=== PATIENT | male | born 1955 | race Caucasian/White ===

== ENCOUNTER 2024-10-24 13:52 | Observation (INO) ==
[2024-10-24] MEDS: TORADOL 30 MG VIAL IVP ONE (14:07)
--- NOTE | 2024-10-24 16:23 | DR.CP ---
HPI Time Seen Time Seen by Provider: 10/24/24 14:23 HPI Comment HPI Comment: left lower chest pain. According to pt he had shingles over the left side of lower ribs .Now has developed pain anterior left lower chest at the site of patients rash .Moderate burning pain that seems to penetrate all the way to the back .He has also noted increase in sensitivity of the skin ta the site of his rash .Pt also indicates that his pain is more localized to front of the chest than anywhere else.He had used oxycodone in the past which did relieve his pain but his current pain is not getting better. He called the ambulance, and he was brought to Er for evaluation .pt has had cxr and ct of chest which has been neg .Pt feels frustrated Has mild shortness of breath but no orthopnea PND or swelling around his ankles Does have copd Reviewed Nurses Notes Review: Yes Source History Provided: Patient Mode of Arrival Mode of Arrival: EMS Timing Came on: Gradually PMH PMH Past Medical History: Arthritis, Asthma, COPD, Dyslipidemia, GERD and Hypertension Past Surgical History: Yes Surgical History: Ortho Surgery and Tonsillectomy Family History Family Medical History: Cancer, Coronary Artery Disease and Hypertension Social History Do you use any recreational Drugs:: No ROS Review of Systems Constitutional: No Symptoms Reported Eyes: No Symptoms Reported ENTM: No Symptoms Reported Respiratoy: Short of Breath Cardiovascular: Chest Pain Gastrointestinal/Abdominal: No Symptoms Reported Genitourinary: No Symptoms Reported Neurological: No Symptoms Reported Musculoskeletal: Back Pain and Joint Pain Integumentary: Other (sensitive ) Hematologic/Lymphatic: No Symptoms Reported PE Vitals Vitals: Vital Signs Temperature 98.1 F Pulse Rate 77 Pulse Rate 76 Pulse Rate 80 Pulse Rate 82 Pulse Rate 81 Pulse Rate 90 Pulse Rate 78 Pulse Rate 90 Pulse Rate 71 Pulse Rate 75 Pulse Rate 73 Pulse Rate 77 Pulse Rate 85 Pulse Rate 103 Pulse Rate 84 Pulse Rate 94 Pulse Rate 80 Pulse Rate 85 Pulse Rate 87 Respiratory Rate 34 Respiratory Rate 17 Respiratory Rate 24 Respiratory Rate 32 Respiratory Rate 17 Respiratory Rate 49 Respiratory Rate 20 Respiratory Rate 21 Respiratory Rate 13 Respiratory Rate 12 Respiratory Rate 13 Respiratory Rate 14 Respiratory Rate 43 Respiratory Rate 41 Respiratory Rate 17 Respiratory Rate 31 Respiratory Rate 22 Respiratory Rate 20 Respiratory Rate 19 Respiratory Rate 20 Blood Pressure 109/60 Blood Pressure 117/72 Blood Pressure 117/72 Blood Pressure 100/61 Blood Pressure 99/55 Blood Pressure 99/55 Blood Pressure 99/55 Blood Pressure 119/82 Blood Pressure 119/77 Blood Pressure 120/82 Blood Pressure 120/82 Blood Pressure 119/77 Blood Pressure 119/77 O2 Sat by Pulse Oximetry 97 O2 Sat by Pulse Oximetry 96 O2 Sat by Pulse Oximetry 96 O2 Sat by Pulse Oximetry 95 O2 Sat by Pulse Oximetry 93 O2 Sat by Pulse Oximetry 95 O2 Sat by Pulse Oximetry 94 O2 Sat by Pulse Oximetry 93 O2 Sat by Pulse Oximetry 94 General Limitations: No Limitations General Appearance: Alert, Anxious and In Distress Head Head Exam: Normal Inspection, Atraumatic and Normocephalic Eyes Eye exam: Normal Appearance, PERRL and EOMI ENT ENT Exam: Mucous Membranes Moist Chest Chest Inspection: Tenderness and Other (increase sensitivity over 7,8 rib laterally and anteriorly ) Respiratory Respiratory Exam: Normal Lung Sounds Bilat and Prolonged Expiratory Phase Respiratory Exam: Bilateral: Crackles Cardiovascular Cardiovascular Exam: +S1 and +S2 Abdominal Exam Abdominal Exam: Normal Inspection, Normal Bowel Sounds and Soft Skin Skin Exam: Rash (healing from the recent shingles left chest ) MDM Additional Information Additional Information Obtained From: Old Records Differential Diagnosis Differential Diagnosis: Chest Wall Pain (post harpatic neuralgia ) and Pulmonary Embolus COURSE Treatment Treatment: d dimer ,cbc ,cmp ROR Labs Reviewed 10/24/24 15:08 10/24/24 15:08 Laboratory: WBC 6.8 X10^3/uL (3.6-10.0) 10/24/24 15:08 RBC 3.60 X10^6/uL (4.7-6.0) L 10/24/24 15:08 Hgb 11.2 g/dL (13.5-18.0) L 10/24/24 15:08 Hct 32.1 % (42.0-54.0) L 10/24/24 15:08 MCV 89.1 fL (80.0-100.0) 10/24/24 15:08 MCH 31.2 pg (27.0-34.0) 10/24/24 15:08 MCHC 35.0 g/dL (33.0-35.0) 10/24/24 15:08 RDW 13.3 % (11.6-16.5) 10/24/24 15:08 Plt Count 228 X10^3/uL (150.0-450.0) 10/24/24 15:08 MPV 9.1 fL (7.4-11.0) 10/24/24 15:08 Neut % (Auto) 69.1 % (42.0-75.0) 10/24/24 15:08 Lymph % (Auto) 17.8 % (21.0-51.0) L 10/24/24 15:08 [place] % (Auto) 8.5 % (0.0-13.0) 10/24/24 15:08 Eos % (Auto) 3.3 % (0.9-2.9) H 10/24/24 15:08 Baso % (Auto) 1.3 % (0.2-1.0) H 10/24/24 15:08 Neut # (Auto) 4.7 x10^3/uL (2.2-4.8) 10/24/24 15:08 Lymph # (Auto) 1.2 X10^3/uL (1.3-2.9) L 10/24/24 15:08 [place] # (Auto) 0.6 x10^3/uL (0.3-0.8) 10/24/24 15:08 Eos # (Auto) 0.2 x10^3/uL (0.0-0.2) 10/24/24 15:08 Baso # (Auto) 0.1 X10^3/uL (0.0-0.1) 10/24/24 15:08 Absolute Nucleated RBC 0.1 /100WBC 10/24/24 15:08 D-Dimer 1.81 ug/ml (0.0-0.57) H 10/24/24 15:08 Sodium 139 mmol/L (136-145) 10/24/24 15:08 Corrected Sodium TNP 10/24/24 15:08 Potassium 3.4 mmol/L (3.5-5.1) L 10/24/24 15:08 Chloride 101 mmol/L (98-107) 10/24/24 15:08 Carbon Dioxide 31.2 mmol/L (21-32) 10/24/24 15:08 BUN 22 mg/dL (7-18) H 10/24/24 15:08 Creatinine 1.19 mg/dL (0.70-1.30) 10/24/24 15:08 Est GFR (MDRD) Af Amer > 60 (>60) 10/24/24 15:08 Est GFR (MDRD) Non-Af > 60 (>60) 10/24/24 15:08 Glucose 92 mg/dL (65-99) 10/24/24 15:08 Calcium 9.0 mg/dL (8.5-10.1) 10/24/24 15:08 Corrected Calcium TNP 10/24/24 15:08 Total Bilirubin 0.20 mg/dL (0.2-1.0) 10/24/24 15:08 AST 19 Units/L (15-37) 10/24/24 15:08 ALT 19 Units/L (12-78) 10/24/24 15:08 Alkaline Phosphatase 64 Units/L (46-116) 10/24/24 15:08 Total Protein 7.0 g/dL (6.4-8.2) 10/24/24 15:08 Albumin 3.5 g/dL (3.4-5.0) 10/24/24 15:08 Globulin 3.5 g/dL (2.5-4.5) 10/24/24 15:08 Albumin/Globulin Ratio 1.0 Ratio (1.1-2.1) L 10/24/24 15:08 Opioid Opioid Risk Tool Age (Kevin box if 16-45): No History of Preadolescent Sexual Abuse: No Total: 0 Total Score Risk Category: Low Risk Copyright: Efren DENNIS predicting aberrant behaviors Discharge Plan Diagnosis Discharge Problem: Bilateral pneumonia, Post herpetic neuralgia, History of hepatitis C, Chronic pain Discharge Plan Patient Disposition: ADMITTED INPATIENT Condition: Stable Prescriptions: Continued sofosbuvir-velpatasvir [Epclusa] 400-100 mg tablet 1 tab PO QDAY albuterol sulfate 0.63 mg/3 mL solution for nebulization 0.63 mg continuous nebulization Q6H PRN (Reason: shortness of breath or wheezing) 90 Days Qty: 1100 1RF Rx Instructions: 3 ML VIA NEBULIZER Q 6 HOURS NEEDED FOR SHORTNESS OF BREATH OR WHEEZING amlodipine 5 mg tablet 5 mg PO QPM 90 Days Qty: 90 1RF Rx Instructions: TAKE 1 TABLET BY MOUTH EVERY EVENING FOR BLOOD PRESSURE atorvastatin 40 mg tablet 40 mg PO QHS 90 Days Qty: 90 1RF Rx Instructions: TAKE 1 TABLET BY MOUTH AT BEDTIME FOR CHOLESTEROL gabapentin 300 mg capsule 300 mg PO QDAY Rx Instructions: TAKE 1 CAPSULE ONCE A DAY hydrochlorothiazide 12.5 mg tablet 12.5 mg PO QAM 90 Days Qty: 90 1RF Rx Instructions: TAKE 1 TABLET BY MOUTH EVERY MORNING FOR BLOOD PRESSURE losartan 50 mg tablet 50 mg PO QAM 90 Days Qty: 90 1RF Rx Instructions: TAKE 1 TABLET BY MOUTH ONCE A DAY IN THE MORNING FOR BLOOD PRESSURE oxycodone-acetaminophen 10-325 mg tablet 1 tab PO Q8H PRN (Reason: pain) Trelegy Ellipta 100-62.5-25 mcg blister with device 1 ea inhalation QDAY Discontinued Trelegy Ellipta 100-62.5-25 mcg blister with device 1 inh inhalation ONCE 30 Days Qty: 60 5RF Rx Instructions: 1 Inhalation Q Daily for Breathing albuterol sulfate 90 mcg/actuation HFA aerosol inhaler 2 puff INHALATION QID 90 Days Qty: 51 1RF Rx Instructions: 2 PUFFS VIA INHALATION Q 6 HRS NEEDED FOR BREATHING fenofibrate nanocrystallized 48 mg tablet 48 mg PO QDAY 90 Days Qty: 90 1RF Rx Instructions: TAKE 1 TABLET BY MOUTH ONCE A DAY FOR TRIGLYCERIDES Linzess 290 mcg capsule 290 mcg PO QAM Rx Instructions: TAKE 1 CAPSULE BY MOUTH ONCE A DAY FOR CONSTIPATION benzonatate 100 mg capsule 100 mg PO TID PRNQty: 14 0RF methylprednisolone [Medrol ([place])] 4 mg tablets,dose pack See Rx Instructions .ROUTE .COMPLEX Qty: 21 0RF Rx Instructions: for 6 days Health Concerns: Post Hospitalization: new medications and changes needed to prevent readmission or further decline. Pt educated and given instructions on all concerns. Plan of Treatment: Continue with present treatment and follow up plan. Pt is to keep follow up appointment as instructed and take medications as ordered. Orders to Discharge Patient Discharge Orders: Transfer (Routine); Ordered 10/24/24 Ordered By: Anatoliy Fonseca Follow ups/Referrals Follow ups/Referrals: Sarah Johnson [Primary Care Provider, MEDICAL] - 3 days Instructions Stand Alone Forms: Find Help Web Site, Post Hospital Follow Up Care Print Language: SETSWA[place]
[2024-10-24 16:39] LABS: CREATININE 1.19 mg/dL (0.70-1.30); eGFR NON BLACK RACES > 60 (>60)
--- NOTE | 2024-10-24 17:50 | CT ---
EXAMINATION: CTA, CHEST HISTORY: chest pain; COMPARISON: CT thorax 06/26/2024 TECHNIQUE: Contiguous axial CT images of the thorax following intravenous contrast. Images reviewed in the axial imaging plane with post processing thick slab MIP/3D volume images at a workstation.The above CT scan was done with automated exposure control and the mA and kV was adjusted to obtain quality images according to patient size. FINDINGS: Moderate elevation of the right hemidiaphragm. Pulmonary consolidation in the right lower lobe measuring 5.7 by 7 x 3 cm. Small area of pulmonary consolidation in the right middle lobe adjacent to the right hemidiaphragm measuring 3.4 by 5.4 by 1.4 cm. There is occlusion of the right lower lobe bronchus. Normal enhancement of the heart. Coronary artery calcifications. The main pulmonary outflow trunk measures 2.5 cm diameter which is within normal range. No evidence of acute thrombus within the pulmonary arteries. No evidence of thoracic aortic aneurysm or dissection. No pericardial effusion. No mediastinal or hilar adenopathy. Moderate to severe thoracic spondylosis. IMPRESSION: Large area of pulmonary consolidation right lower lobe of the chest with smaller area of pulmonary consolidation of the left lower lobe. Moderate elevation of the right hemidiaphragm of the chest. Occlusion of the right lower lobe pulmonary bronchus. Coronary artery calcifications. THIS IS AN ELECTRONICALLY VERIFIED FINAL REPORT 10/24/2024 5:47 PM - Electronically signed by Kim Bautista MD
[2024-10-24 17:57] LABS: MEAN PLATELET VOLUME 9.1 fL (7.4-11.0); RED CELL DISTRIBUTION WIDTH 13.3 % (11.6-16.5)
[2024-10-24] MEDS ORDERED: PATIENT'S HOME MEDICATION (Fluticasone-Umeclidin-Vilanter [Trelegy Ellipta] 100-62.5-25 mc IN SCH (20:12)
[2024-10-24] MEDS ORDERED: ACCUNEB 1.25 MG NEBULE NEB PRN (20:24)
[2024-10-24 20:47] VITALS: BMI 25.7
[2024-10-24] MEDS: PULMICORT NEB TX 0.5 MG NEB SCH (20:56)
[2024-10-24] MEDS: PROVENTIL NEB TX 0.083% 2.5MG/ 3ML NEB SCH (20:56)
[2024-10-24] MEDS: MUCOMYST 20% 200 MG/ML NEB SCH (21:06)
[2024-10-24] MEDS: VIBRAMYCIN 100 MG in D5W 250 ML IV 250 ML IV SCH (21:15)
[2024-10-24] MEDS: NORVASC TAB 5 MG PO SCH (21:17)
[2024-10-24] MEDS: LIPITOR TAB 40 MG PO SCH (21:17)
[2024-10-24] MEDS: PERCOCET TAB 5/325 MG PO PRN (21:46)
[2024-10-24] MEDS: NEURONTIN CAP 300 MG PO SCH (21:52)
[2024-10-24] MEDS ORDERED: CONSULT PHARMACY - POTASSIUM & MAGNESIUM XX SCH (23:00)
[2024-10-24] MEDS: K-DUR TAB 20 MEQ PO ONE (23:16)
[2024-10-25 05:44] LABS: MEAN PLATELET VOLUME 7.7 fL (7.4-11.0); RED CELL DISTRIBUTION WIDTH 13.2 % (11.6-16.5)
[2024-10-25 05:56] LABS: COR NA(FOR HYPERGLY) 141 mmol/L (136-145); CREATININE 1.19 mg/dL (0.70-1.30); eGFR NON BLACK RACES > 60 (>60)
[2024-10-25] MEDS: TORADOL 30 MG VIAL ONE (07:08)
[2024-10-25] MEDS: OMNIPAQUE 350 mg/mL 100 mL BTL 100 ML ONE (07:10)
[2024-10-25] MEDS: PERCOCET TAB 5/325 MG ONE (07:10)
[2024-10-25] MEDS: MUCOMYST (RESPIRATORY USE ONLY) ONE (07:10)
[2024-10-25] MEDS: K-DUR TAB 20 MEQ PO ONE (07:11)
[2024-10-25] MEDS: HYDROCHLOROTHIAZIDE 12.5 MG CAP PO SCH (10:02)
[2024-10-25] MEDS: COZAAR PO SCH (10:02)
[2024-10-25] MEDS: MILK OF MAGNESIA PO SCH (10:03)
[2024-10-25] MEDS: SOFOSBUVIR VELPATASVIR PO SCH (10:03)
[2024-10-25] MEDS: TORADOL 15 MG VIAL IVP PRN (15:22)
[2024-10-25] MEDS: DECADRON INJ IVP SCH (15:23)
[2024-10-25] MEDS: NEURONTIN CAP 300 MG PO SCH (15:23)
--- NOTE | 2024-10-25 16:05 | DR.H&P ---
H&P History & Physical for Day of: H&P Date: 10/25/24 Chief Complaint Chief Complaint: chest pain History of Present Illness History of Present Illness: From ER note: "left lower chest pain. According to pt he had shingles over the left side of lower ribs .Now has developed pain anterior left lower chest at the site of patients rash .Moderate burning pain that seems to penetrate all the way to the back .He has also noted increase in sensitivity of the skin ta the site of his rash .Pt also indicates that his pain is more localized to front of the chest than anywhere else.He had used oxycodone in the past which did relieve his pain but his current pain is not getting better. He called the ambulance, and he was brought to Er for evaluation .pt has had cxr and ct of chest which has been neg .Pt feels frustrated Has mild shortness of breath but no orthopnea PND or swelling around his ankles" Patient reports that he has the same chest pain, chest pressure, and dyspnea. Still with a productive cough. Had stopped his Trelegy approximately a month ago due to reading all the side effects and feeling like he was having multiple. Vitals and labs overall stable today. Nurses deny any overnight events. ROS: 12 point ROS positive for dyspnea, left-sided chest pain, rash of the left chest wall, back pain, and productive cough. Otherwise negative. PE: Well-developed, well-nourished male in no acute distress. Hearing intact conversation, head NCAT, EOMI. Neck full range of motion with trachea midline. Heart regular rate and rhythm. Lungs clear except for at the bases with a lot of referred upper airway noises. Belly is soft, nontender, nondistended with bowel sounds present. Mood and affect are appropriate. Able to move all extremities equally well with no edema. Skin turgor and color are appropriate. Has a couple of dry, erythematous lesions of the left lateral chest wall overlying ribs 9-11. Past Medical History Past Medical History: Arthritis, Asthma, COPD, Dyslipidemia, GERD and Hypertension Past Surgical History Surgical History: Joint Replacement, Ortho Surgery and Tonsillectomy Family History Family Medical History: Cancer, Coronary Artery Disease and Hypertension Social History Does patient currently use any type of tobacco product: No Have you used tobacco products in the last 12 months: No Type of Tobacco Use: Cigarettes How many years tobacco product used: 60 Does any household member use tobacco: No Alcohol Use: None Drug Use: None Medications Home Medications: Home Medications Medication Instructions Recorded Confirmed Type amlodipine 5 mg tablet 5 mg PO QDAY 10/24/24 History atorvastatin 40 mg tablet 40 mg PO QPM 10/24/24 History fenofibrate nanocrystallized 48 mg 48 mg PO QDAY 10/2410/24/24 History tablet fluticasone fur. 100 mcg-umeclid 1 ea inhalation QDAY 10/24/24 10/24/24 History 62.5 mcg-vilant 25 mcg inhalat.powder (Trelegy Ellipta) hydrochlorothiazide 12.5 mg capsule 12.5 mg PO QDAY 10/24/24 History linaclotide 290 mcg capsule 290 mcg PO QAM 10/24/24 History (Linzess) losartan 50 mg tablet 50 mg PO QDAY 10/24/2410/24 History omeprazole 40 mg capsule,delayed 40 mg PO QDAY 5 10/24/24 History release oxycodone-acetaminophen 10 mg-325 1 tab PO TID PRN 10/24/24 History mg tablet sofosbuvir 400 mg-velpatasvir 100 1 tab PO QDAY 10/24/24 History mg tablet (Epclusa) tamsulosin 0.4 mg capsule 0.4 mg PO QDAY 10/24/2409/27 History Allergies Allergies Allergy/AdvReac Type Severity Reaction Status Date / Time magnesium AdvReac Verified 10/24/24 19:27 Labs 10/25/24 05:33 10/25/24 05:33 Labs: Laboratory WBC 5.4 X10^3/uL (3.6-10.0) 10/25/24 05:33 RBC 3.47 X10^6/uL (4.7-6.0) L 10/25/24 05:33 Hgb 10.8 g/dL (13.5-18.0) L 10/25/24 05:33 Hct 31.2 % (42.0-54.0) L 10/25/24 05:33 MCV 89.9 fL (80.0-100.0) 10/25/24 05:33 MCH 31.1 pg (27.0-34.0) 10/25/24 05:33 MCHC 34.6 g/dL (33.0-35.0) 10/25/24 05:33 RDW 13.2 % (11.6-16.5) 10/25/24 05:33 Plt Count 203 X10^3/uL (150.0-450.0) 10/25/24 05:33 MPV 7.7 fL (7.4-11.0) 10/25/24 05:33 Neut % (Auto) 64.2 % (42.0-75.0) 10/25/24 05:33 Lymph % (Auto) 21.2 % (21.0-51.0) 10/25/24 05:33 [place] % (Auto) 10.3 % (0.0-13.0) 10/25/24 05:33 Eos % (Auto) 3.6 % (0.9-2.9) H 10/25/24 05:33 Baso % (Auto) 0.7 % (0.2-1.0) 10/25/24 05:33 Neut # (Auto) 3.5 x10^3/uL (2.2-4.8) 10/25/24 05:33 Lymph # (Auto) 1.2 X10^3/uL (1.3-2.9) L 10/25/24 05:33 [place] # (Auto) 0.6 x10^3/uL (0.3-0.8) 10/25/24 05:33 Eos # (Auto) 0.2 x10^3/uL (0.0-0.2) 10/25/24 05:33 Baso # (Auto) 0.0 X10^3/uL (0.0-0.1) 10/25/24 05:33 Absolute Nucleated RBC 0.1 /100WBC 10/25/24 05:33 D-Dimer 1.81 ug/ml (0.0-0.57) H 10/24/24 15:08 Sodium 141 mmol/L (136-145) 10/25/24 05:33 Corrected Sodium 141 mmol/L (136-145) 10/25/24 05:33 Potassium 3.4 mmol/L (3.5-5.1) L 10/25/24 05:33 Chloride 103 mmol/L (98-107) 10/25/24 05:33 Carbon Dioxide 29.9 mmol/L (21-32) 10/25/24 05:33 BUN 23 mg/dL (7-18) H 10/25/24 05:33 Creatinine 1.19 mg/dL (0.70-1.30) 10/25/24 05:33 Est GFR (MDRD) Af Amer > 60 (>60) 10/25/24 05:33 Est GFR (MDRD) Non-Af > 60 (>60) 10/25/24 05:33 Glucose 116 mg/dL (65-99) H 10/25/24 05:33 Calcium 9.1 mg/dL (8.5-10.1) 10/25/24 05:33 Corrected Calcium TNP 10/25/24 05:33 Magnesium 1.7 mg/dL (2.0-2.9) L 10/25/24 05:33 Total Bilirubin 0.20 mg/dL (0.2-1.0) 10/25/24 05:33 AST 22 Units/L (15-37) 10/25/24 05:33 ALT 17 Units/L (12-78) 10/25/24 05:33 Alkaline Phosphatase 58 Units/L (46-116) 10/25/24 05:33 Total Protein 6.8 g/dL (6.4-8.2) 10/25/24 05:33 Albumin 3.5 g/dL (3.4-5.0) 10/25/24 05:33 Globulin 3.3 g/dL (2.5-4.5) 10/25/24 05:33 Albumin/Globulin Ratio 1.1 Ratio (1.1-2.1) 10/25/24 05:33 Physical Exam Vital Signs: Vital Signs Temperature 98.1 F Temperature 98.0 F Pulse Rate [Right Brachial] 80 Pulse Rate [Right Brachial] 67 Respiratory Rate 19 Respiratory Rate 19 Respiratory Rate 19 Respiratory Rate 19 Blood Pressure [Left Arm] 130/69 Blood Pressure [Left Arm] 101/59 O2 Sat by Pulse Oximetry 96 O2 Sat by Pulse Oximetry 95 O2 Sat by Pulse Oximetry 94 Assessment/Plan (1) Post herpetic neuralgia: Narrative Support Text: Increase gabapentin to 3 times daily. Will add on Toradol as needed. Status: Acute (2) Bilateral pneumonia: Qualifiers: Pneumonia type: due to unspecified organism Lung location: lower lobe of lung Qualified Code(s): J18.9 - Pneumonia, unspecified organism Narrative Support Text: Continue Doxy, add Decadron, continue nebulizer. O2 as needed. Status: Acute (3) COPD exacerbation: Narrative Support Text: See above. Status: Acute (4) Normocytic anemia: Narrative Support Text: Monitor. Status: Acute (5) Essential hypertension: Narrative Support Text: Monitor. Status: Acute
[2024-10-25] MEDS: NS 250 ML IV 250 ML IV PRN (21:12)
[2024-10-25] MEDS: COLACE CAP 100 MG PO SCH (21:13)
[2024-10-26] MEDS: NS 250 ML IV 250 ML IV ONE (02:33)
[2024-10-26 05:44] LABS: MEAN PLATELET VOLUME 8.8 fL (7.4-11.0); RED CELL DISTRIBUTION WIDTH 13.1 % (11.6-16.5)
[2024-10-26 06:02] LABS: COR NA(FOR HYPERGLY) 142 mmol/L (136-145); CREATININE 1.10 mg/dL (0.70-1.30); eGFR NON BLACK RACES > 60 (>60)
[2024-10-26 06:16] LABS: PLATELET MORPHOLOGY COMMENT NORMAL (NORMAL)
[2024-10-26] MEDS ORDERED: CONSULT PHARMACY - POTASSIUM & MAGNESIUM XX SCH (07:00)
[2024-10-26] MEDS: MAG-OX TAB PO SCH (09:13)
[2024-10-26] MEDS: K-DUR TAB 20 MEQ PO SCH (10:05)
[2024-10-26 12:21] VITALS: BP 115/59; PULSE 103; RESP 16; TEMP 97.8; O2SAT 96
--- NOTE | 2024-10-26 18:21 | PCM.DCPLAN ---
DISCHARGE SUMMARY Admission Date Date of Admission: 10/24/24 Discharge Date Discharge Date: 10/26/24 Admission Diagnoses (1) Post herpetic neuralgia: Status: Acute (2) Bilateral pneumonia: Status: Acute (3) COPD exacerbation: Status: Acute (4) Normocytic anemia: Status: Acute (5) Essential hypertension: Status: Acute Discharge Diagnoses Discharge Diagnosis: same Discharge Medications Discharge Medications: Home Medication List amlodipine 5 mg tablet 5 mg PO QDAY 10/24/24 [History] atorvastatin 40 mg tablet 40 mg PO QPM 10/24/24 [History] fenofibrate nanocrystallized 48 mg tablet 48 mg PO QDAY 10/24/24 [History] fluticasone fur. 100 mcg-umeclid 62.5 mcg-vilant 25 mcg inhalat.powder (Trelegy Ellipta) 1 ea inhalation QDAY 10/24/24 [History] hydrochlorothiazide 12.5 mg capsule 12.5 mg PO QDAY 10/24/24 [History] linaclotide 290 mcg capsule (Linzess) 290 mcg PO QAM 10/24/24 [History] losartan 50 mg tablet 50 mg PO QDAY 10/24/24 [History] omeprazole 40 mg capsule,delayed release 40 mg PO QDAY 10/24/24 [History] oxycodone-acetaminophen 10 mg-325 mg tablet 1 tab PO TID PRN 10/24/24 [History] sofosbuvir 400 mg-velpatasvir 100 mg tablet (Epclusa) 1 tab PO QDAY 10/24/24 [History] tamsulosin 0.4 mg capsule 0.4 mg PO QDAY 10/24/24 [History] Prescriptions: Hospital Course Vital Signs: Vital Signs Temperature 98.4 F Temperature 98.4 F Temperature 98.4 F Pulse Rate [Left Brachial] 116 Pulse Rate [Right Brachial] 112 Pulse Rate [Right Brachial] 112 Pulse Rate 85 Respiratory Rate 20 Respiratory Rate 18 Respiratory Rate 18 Respiratory Rate 18 Respiratory Rate 18 Blood Pressure [Left Arm] 119/60 Blood Pressure [Left Arm] 113/59 Blood Pressure [Left Arm] 113/59 O2 Sat by Pulse Oximetry 95 O2 Sat by Pulse Oximetry 93 O2 Sat by Pulse Oximetry 97 O2 Sat by Pulse Oximetry 97 Latest Lab Results: Laboratory Last Values WBC 8.2 X10^3/uL (3.6-10.0) 10/26/24 05:07 RBC 3.48 X10^6/uL (4.7-6.0) L 10/26/24 05:07 Hgb 10.9 g/dL (13.5-18.0) L 10/26/24 05:07 Hct 31.2 % (42.0-54.0) L 10/26/24 05:07 MCV 89.5 fL (80.0-100.0) 10/26/24 05:07 MCH 31.3 pg (27.0-34.0) 10/26/24 05:07 MCHC 34.9 g/dL (33.0-35.0) 10/26/24 05:07 RDW 13.1 % (11.6-16.5) 10/26/24 05:07 Plt Count 206 X10^3/uL (150.0-450.0) 10/26/24 05:07 Plt Count Comment Adequate (ADEQUATE) 10/26/24 05:07 MPV 8.8 fL (7.4-11.0) 10/26/24 05:07 Neut % (Auto) 94.1 % (42.0-75.0) H 10/26/24 05:07 Lymph % (Auto) 3.6 % (21.0-51.0) L 10/26/24 05:07 [place] % (Auto) 1.9 % (0.0-13.0) 10/26/24 05:07 Eos % (Auto) 0.2 % (0.9-2.9) L 10/26/24 05:07 Baso % (Auto) 0.2 % (0.2-1.0) 10/26/24 05:07 Neut # (Auto) 7.7 x10^3/uL (2.2-4.8) H 10/26/24 05:07 Lymph # (Auto) 0.3 X10^3/uL (1.3-2.9) L 10/26/24 05:07 [place] # (Auto) 0.2 x10^3/uL (0.3-0.8) L 10/26/24 05:07 Eos # (Auto) 0.0 x10^3/uL (0.0-0.2) 10/26/24 05:07 Baso # (Auto) 0.0 X10^3/uL (0.0-0.1) 10/26/24 05:07 Absolute Nucleated RBC 0.0 /100WBC 10/26/24 05:07 Total Counted 100 10/26/24 05:07 Neutrophils % (Manual) 96 % (39-76) H 10/26/24 05:07 Lymphocytes % (Manual) 1 % (13-43) L 10/26/24 05:07 Monocytes % (Manual) 3 % (4-9) L 10/26/24 05:07 Plt Morphology Comment Normal (NORMAL) 10/26/24 05:07 RBC Morphology Normal (NORMAL) 10/26/24 05:07 D-Dimer 1.81 ug/ml (0.0-0.57) H 10/24/24 15:08 Sodium 141 mmol/L (136-145) 10/26/24 05:07 Corrected Sodium 142 mmol/L (136-145) 10/26/24 05:07 Potassium 3.7 mmol/L (3.5-5.1) 10/26/24 05:07 Chloride 105 mmol/L (98-107) 10/26/24 05:07 Carbon Dioxide 27.2 mmol/L (21-32) 10/26/24 05:07 BUN 19 mg/dL (7-18) H 10/26/24 05:07 Creatinine 1.10 mg/dL (0.70-1.30) 10/26/24 05:07 Est GFR (MDRD) Af Amer > 60 (>60) 10/26/24 05:07 Est GFR (MDRD) Non-Af > 60 (>60) 10/26/24 05:07 Glucose 131 mg/dL (65-99) H 10/26/24 05:07 Calcium 9.4 mg/dL (8.5-10.1) 10/26/24 05:07 Corrected Calcium TNP 10/26/24 05:07 Magnesium 1.6 mg/dL (2.0-2.9) L 10/26/24 05:07 Total Bilirubin 0.20 mg/dL (0.2-1.0) 10/26/24 05:07 AST 21 Units/L (15-37) 10/26/24 05:07 ALT 18 Units/L (12-78) 10/26/24 05:07 Alkaline Phosphatase 53 Units/L (46-116) 10/26/24 05:07 Total Protein 6.8 g/dL (6.4-8.2) 10/26/24 05:07 Albumin 3.5 g/dL (3.4-5.0) 10/26/24 05:07 Globulin 3.3 g/dL (2.5-4.5) 10/26/24 05:07 Albumin/Globulin Ratio 1.1 Ratio (1.1-2.1) 10/26/24 05:07 Hospital Course: Patient admitted with diagnosis of intractable, left-sided chest wall pain and bilateral pneumonia. Responded well to antibiotics, steroid, nebs, and gabapentin with as needed Toradol. No longer requiring O2 and reports full resolution of pain. Requesting discharge today. He is agreeable to resume his Trelegy at home. He will follow-up with PCP. Sent home on increased dose of gabapentin, doxycycline, and Decadron and improved, stable condition. PE: Well-developed, well-nourished, elderly male in no acute distress. Head NCAT, EOMI, hearing grossly intact. Heart regular rate and rhythm. Lungs are greatly improved with strong speech and good aeration. Diminished more on the right than the left base. Bowel sounds present. Mood and affect appropriate.
== END 2024-10-26 12:00 | disposition home or self-care (01) ==
LOC: MED/SURG 13:52 → ER 13:52 → MED/SURG 20:15
PROVIDERS: ADMIT Family Medicine; ATTEND Family Medicine
DX: K21.9 Gastro-esophageal reflux disease without esophagitis; Z59.82 Transportation insecurity; E83.42 Hypomagnesemia; R79.1 Abnormal coagulation profile; J18.8 Other pneumonia, unspecified organism; B02.29 Other postherpetic nervous system involvement; I10 Essential (primary) hypertension; D64.89 Other specified anemias; E78.5 Hyperlipidemia, unspecified; R06.02 Shortness of breath; Z59.41 Food insecurity; R07.89 Other chest pain; R73.09 Other abnormal glucose; J44.1 Chronic obstructive pulmonary disease with (acute) exacerbation; E87.6 Hypokalemia